=== PATIENT | male | born 1995 ===

== ENCOUNTER 2019-05-22 11:11 | Emergency (ER) | payer OTHER ==
[~2019-05-22] VITALS: Ht 177.8 cm; Wt 86.2 kg
== END 2019-05-22 14:19 | disposition home or self-care (01) ==
LOC: ER 11:11
DX: R10.32 Left lower quadrant pain (principal); R19.7 Diarrhea, unspecified

== ENCOUNTER → 2020-04-28 | Emergency (ER) | payer OTHER ==
[~2020-04-28] VITALS: Ht 180.3 cm; Wt 95.3 kg
[~2020-04-28] MED LIST: TYLENOR
== END | disposition home or self-care (01) ==
LOC: ER 18:21
DX: K50.90 Crohn's disease, unspecified, without complications (principal); R10.31 Right lower quadrant pain